=== PATIENT | male | born 1990 | race Two or more races ===

== ENCOUNTER 2016-10-16 10:34 | Emergency (ER) | payer SELFPAY ==
[~2016-10-16] VITALS: Ht 203.2 cm; Wt 111.1 kg
[2016-10-16 11:37] LABS: Urine Bilirubin Negative (Negative); Urine Blood 1+ /uL (Negative); Urine Color Yellow (Yellow); Urine Glucose Normal (Normal); Urine Ketone Negative (Negative); Urine Mucus FEW (None Seen); Urine Nitrite Negative (Negative); Urine RBC 30 /hpf (0 - 3); Urine Squamous Epithelial Cell FEW /hpf (<5); Urine Urobilinogen Normal (Negative)
[2016-10-16 12:24] VITALS: BP 120/58
[2016-10-16] MEDS ORDERED: cefTRIAXone SODIUM 250 MG VL IM ONE (12:30)
== END 2016-10-16 13:00 | disposition home or self-care (01) ==
LOC: ER 10:37
DX: N39.0 Urinary tract infection, site not specified (principal)
CPT/HCPCS: 81001; 96372; 99283; J0696